=== PATIENT | male | born 1975 | race Hispanic/Latino ===

== ENCOUNTER 2018-06-18 02:48 | Emergency (ER) | payer MEDICARE ==
[2018-06-18 02:48] VITALS: BMI 23.6
--- NOTE | 2018-06-18 03:14 | C.PDOC ---
History Of Present Illness 43 year old male is brought to the ED by EMS for public intoxication. Patient was found in the street walking into incoming traffic. Patient states he was using heroin today. Patient denies SI/HI, hallucinations, SOB, CP, weakness, numbness. Time Seen by Provider: 06/18/18 03:13 Chief Complaint (Nursing): Substance Abuse History Per: Patient History/Exam Limitations: no limitations Onset/Duration Of Symptoms: Hrs Current Symptoms Are (Timing): Still Present Suicide/Self Injury Attempted (Context): None Modifying Factor(s): Other (Heroin) Associated Symptoms: denies: Depression, Suicidal Thoughts, Suicidal Plan Involuntary Hold By: None Recent travel outside of the [place]: No Additional History Per: EMS Past Medical History Reviewed: Historical Data, Nursing Documentation, Vital Signs Vital Signs: Last Vital Signs Temp 98 F 06/18/18 02:58 Pulse 84 06/18/18 02:58 Resp 12 06/18/18 02:58 BP 101/68 06/18/18 02:58 Pulse Ox 94 L 06/18/18 03:31 - Medical History PMH: HTN Surgical History: Cholecystectomy Denies: Pacemaker - [place] Procedures CLOSURE SKIN & SUBCUTANEOUS NEC (02/10/02) EXCISION OF CECUM, ENDO (11/03/15) EXCISION OF ESOPHAGUS, ENDO, DIAGN (11/03/15) EXCISION OF STOMACH, ENDO, DIAGN (11/03/15) Family History: States: Unknown Family Hx - Social History Hx Alcohol Use: No Hx Substance Use: No Review Of Systems Constitutional: Negative for: Fever, Chills Cardiovascular: Negative for: Chest Pain Respiratory: Negative for: Shortness of Breath Gastrointestinal: Negative for: Nausea, Vomiting Skin: Negative for: Rash Neurological: Negative for: Weakness, Numbness Psych: Negative for: Depression, Suicidal ideation Physical Exam - Physical Exam Appears: Non-toxic, No Acute Distress Skin: Warm, Dry Head: Normacephalic Eye(s): bilateral: Normal Inspection Neck: Supple Chest: Symmetrical Cardiovascular: Rhythm Regular Respiratory: No Rales, No Rhonchi, No Wheezing Gastrointestinal/Abdominal: Soft, No Tenderness, No Guarding, No Rebound Extremity: No Tenderness, No Swelling Extremity: Bilateral: Atraumatic, Normal Color And Temperature, Normal ROM Neurological/Psych: Oriented x3, Normal Speech Gait: Steady ED Course And Treatment O2 Sat by Pulse Oximetry: 94 Pulse Ox Interpretation: Normal Reevaluation Time: 05:20 Reassessment Condition: Improved Disposition Counseled Patient/Family Regarding: Studies Performed, Diagnosis, Need For Followup - Disposition Referrals: [facility] [Outside] Disposition: HOME/ ROUTINE Disposition Time: 03:13 Condition: FAIR Instructions: Polysubstance Abuse (DC) Forms: [facility] (Jordanian) - Clinical Impression Clinical Impression: Drug abuse - Scribe Statement The provider has reviewed the documentation as recorded by the Scribe Hansel Pressley All medical record entries made by the Scribe were at my direction and personally dictated by me. I have reviewed the chart and agree that the record accurately reflects my personal performance of the history, physical exam, medical decision making, and the department course for this patient. I have also personally directed, reviewed, and agree with the discharge instructions and disposition.
[2018-06-18 05:48] VITALS: BP 100/60; PULSE 70; RESP 16; TEMP 98.2; O2SAT 98
== END 2018-06-18 05:47 | disposition home or self-care (01) ==
LOC: EDBD 02:48 → C.ER 02:48
DX: F19.10 Other psychoactive substance abuse, uncomplicated (principal)